=== PATIENT | male | born 1930 | race Caucasian/White ===

== ENCOUNTER 2016-03-10 08:00 | Outpatient (CLI) | payer MEDICARE, OTHER | END 2016-03-10 08:01 | disposition home or self-care (01) | DX: N39.0 Urinary tract infection, site not specified (principal) ==

== ENCOUNTER 2016-03-22 20:30 | Outpatient (CLI) | payer MEDICARE, OTHER | END 2016-03-22 20:31 | disposition home or self-care (01) | DX: J11.1 Influenza due to unidentified influenza virus with other respiratory manifestations (principal) ==

== ENCOUNTER 2016-04-22 09:42 | Outpatient (CLI) | payer MEDICARE, OTHER | END 2016-04-22 09:43 | disposition home or self-care (01) | DX: N18.9 Chronic kidney disease, unspecified (principal); J18.9 Pneumonia, unspecified organism ==

== ENCOUNTER 2016-04-24 15:20 | Outpatient (CLI) | payer MEDICARE, OTHER | END 2016-04-24 15:21 | disposition home or self-care (01) | DX: N18.9 Chronic kidney disease, unspecified (principal) ==